=== PATIENT | male | born 1945 | race Caucasian/White ===

== ENCOUNTER 2016-04-27 06:06 | Day surgery (SDC) | payer BC ==
[2016-04-21 10:01] LABS: HEMATOCRIT 43.4 % (40.0-51.0); HEMOGLOBIN 14.5 g/dL (13.6-17.8)
[2016-04-21 10:48] LABS: A/G RATIO 1.3 (0.7-1.9); ALBUMIN 3.7 G/DL (3.5-5.0); ALKALINE PHOSPHATASE 46 U/L (45-117); BUN (BLOOD UREA NITROGEN) 17 MG/DL (6-23); CHLORIDE, SERUM 107 MMOL/L (96-112); CO2 (CARBON DIOXIDE) 30 MMOL/L (24-34); CREATININE 0.82 MG/DL (0.70-1.30); GFR AFRICAN AMERICAN 102 ML/MIN (>=60); GFR NON AFRICAN AMERICAN 88 ML/MIN (>=60); GLOBULIN 2.8 G/DL (2.5-4.1); GLUCOSE, SERUM 87 MG/DL (60-99); POTASSIUM, SERUM 3.9 MMOL/L (3.5-5.3); SGOT(AST) 18 U/L (5-40); SGPT(ALT) 36 U/L (5-65); SODIUM, SERUM 145 MMOL/L (135-148); TOTAL BILIRUBIN 0.4 MG/DL (0-1.2); TOTAL PROTEIN 6.5 G/DL (6.0-8.5)
--- NOTE | ~2016-04-27 | OP ---
Record Of Operation [facility] [address] [place]. [address] NAME: EWELINA MAGANA : 41 STATUS : REG [facility] PAT#: [id number] AGE: 70 ADM/REG DATE : 04/27/16 MR#: [id number] REPORT SERV DATE: 04/27/16 DICTATED BY: ABHIJEET MURRAY DATE: 04/27/16 REPORT STATUS : Draft TRANSCRIBED BY: MODL DATE: 04/27/16 DATE OF PROCEDURE: 04/27/2016 PREOPERATIVE DIAGNOSIS: Incarcerated left inguinal hernia (indirect). POSTOPERATIVE DIAGNOSIS: Incarcerated left inguinal hernia (indirect) with indirect right inguinal hernia. PROCEDURE: Laparoscopic reduction and mesh patch repair of bilateral inguinal hernia. SURGEON: Abhijeet Murray M.D. DESCRIPTION OF OPERATIVE PROCEDURE: The patient was brought to operating suite, placed in supine position, underwent satisfactory general endotracheal anesthesia without incident. The skin of the abdomen was scrubbed, prepped, and draped in usual sterile fashion. 0.5% Marcaine with epinephrine was utilized as supplemental local anesthesia at all intended trocar sites. Initially, an infraumbilical incision was performed dissecting through the skin, subcutaneous tissue, umbilical fascia. Inferolateral retraction of the left exposed the medial aspect of the left anterior rectus sheath. This was incised longitudinally. The medial aspect of the left rectus muscle was identified. This was retracted laterally exposing the left posterior rectus sheath. A preperitoneal dissection balloon was inserted, posterior left rectus sheath to the level of pubic tubercle was insufflated under direct camera visualization. This completed the preperitoneal dissection bilaterally. This balloon was placed as structural balloon and CO2 was insufflated in the preperitoneal space for pressures of 15 mmHg throughout the case. Two additional 5 mm trocars were placed in the infraumbilical midline under direct visualization. Completion of the preperitoneal dissection was performed bilaterally and revealed on the right an indirect sac with protrusion of preperitoneal fat along the cord structures. This was dissected free from the internal ring. The cord structures were skeletonized. On the left, there was a much larger, thick, indirect sac that was dissected out of the internal ring and off the cord structures. The sac was opened and there was a "tongue" of omentum also adherent to the ring, this was "stuffed back" into the peritoneal cavity and then the thick indirect sac underwent high ligation with 0 PDS Endoloop. Both inferior epigastric vessels, cord structures, and Hesselbach's triangle were dissected bilaterally. Two separately placed pieces of Bard 3DMax size large oriented left and right were dipped in local anesthesia that rolled up and unrolled over the inguinal canal floors bilaterally. Multiple firings of the 5 mm Sorbafix Tacker were utilized to plicate the mesh in position. Hemostasis was assured and the preperitoneal space was allowed to collapse. Trocars were removed. CO2 was milked from the preperitoneal space. Record Of Operation [facility] [address] [place]. [address] NAME: EWELINA MAGANA : 41 STATUS : [facility] PAT#: [id number] AGE: 70 ADM/REG DATE : 04/27/16 MR#: [id number] REPORT SERV DATE: 04/27/16 DICTATED BY: ABHIJEET MURRAY DATE: 04/27/16 REPORT STATUS : Draft TRANSCRIBED BY: MARCELLUSL DATE: 04/27/16 Additionally, the posterior rectus sheath and peritoneum was opened allowing any CO2 to egress from the peritoneal cavity. The posterior rectus sheath and anterior rectus sheath were closed with [id number] sutures of 0 Vicryl, subcutaneous tissue was closed at all sites with interrupted 4-0 Vicryl, running subcuticular stitch 4-0 Vicryl for the skin. Dermabond skin adhesive placed. The patient tolerated the procedure well and was returned to PACU in stable condition. At termination of procedure, sponge, needle, lap, and instrument counts were correct x3. ESTIMATED BLOOD LOSS: 10-15 mL. WR/MODL Abhijeet Murray M.D. / [id number] CC: Herminia Dent M.D.
[~2016-04-27 06:06] MED LIST: GLUCOPHXR7 PO; HALF81 PO; LIPITOR20 PO; MULTIPLE VIT PO; TRULICITY1.5 MG/0.5 SQ; VITC500 PO
== END 2016-04-27 16:36 | disposition home or self-care (01) ==
LOC: SDC 06:06
PROVIDERS: Specialist
PROC: 0YUA4JZ Supplement Bilateral Inguinal Region with Synthetic Substitute, Percutaneous Endoscopic Approach (ICD-10-PCS; principal; 2016-04-27 07:45)
DX: K40.00 Bilateral inguinal hernia, with obstruction, without gangrene, not specified as recurrent (principal); E78.5 Hyperlipidemia, unspecified; E11.9 Type 2 diabetes mellitus without complications; R35.0 Frequency of micturition; Z98.890 Other specified postprocedural states; E78.00 Pure hypercholesterolemia, unspecified; Z87.891 Personal history of nicotine dependence; Z79.899 Other long term (current) drug therapy; Z79.84 Long term (current) use of oral hypoglycemic drugs
CPT/HCPCS: 80053; 82962; 85014; 85018; 93005; C1726; C1727; C1781; J0690; J1885; J2370; J2405; J2710; J3010